=== PATIENT | female | born 1995 | race American Indian/Alaskan Native ===

== ENCOUNTER 2017-07-18 00:51 | Emergency (ER) | payer SELFPAY ==
[2017-07-18 00:57] VITALS: BP 110/69
[2017-07-18] MEDS ORDERED: MOTRIN PO ONE (05:06)
[2017-07-18] MEDS ORDERED: DECADRON IM ONE (05:06)
[2017-07-18] MEDS ORDERED: TYLENOL PO ONE (05:07)
[2017-07-18] MEDS ORDERED: BICILLIN L-A IM ONE (05:07)
--- NOTE | 2017-07-18 06:20 | Emergency Department Report ---
ED ENT HPI - General Chief complaint: Sore Throat Stated complaint: SORETHROAT Time Seen by Provider: 07/18/17 04:43 Source: patient Mode of arrival: Ambulatory Limitations: No Limitations - History of Present Illness Initial comments: 22-year-old female past medical history none presents with complaint of 3-4 days of intermittent body aches sore throat chills and exudates on tonsils. Patient is awake alert and oriented 3 no wheezing or stridor noted on exam. Patient speaking in full sentences. No trismus and no drooling noted on exam. Patient is fully lucid and able to speak in full sentences. Primarily complaining of sore throat. Some intermittent nausea. MD complaint: sore throat Onset/Timin -: days(s) Location: throat Severity: moderate Quality: aching Consistency: intermittent Improves with: none Worsens with: none Associated Symptoms: sore throat - Related Data Previous Rx's Medication Instructions Recorded Last Taken Type Dextromethorphan/Benzocaine 1 each PO Q4H PRN #1 box 07/18/17 Unknown Rx [Cepacol Sorethroat-Cough Carl] Ibuprofen [Motrin] 600 mg PO Q8H PRN #20 tablet 07/18/17 Unknown Rx Ondansetron [Zofran Odt] 4 mg PO Q8HR PRN #10 tab.rapdis 07/18/17 Unknown Rx Allergies Allergy/AdvReac Type Severity Reaction Status Date / Time No Known Allergies Allergy Unverified 07/18/17 01:23 ED Dental HPI - General Chief complaint: Sore Throat Stated complaint: SORETHROAT Time Seen by Provider: 07/18/17 04:43 Source: patient Mode of arrival: Ambulatory Limitations: No Limitations - Related Data Previous Rx's Medication Instructions Recorded Last Taken Type Dextromethorphan/Benzocaine 1 each PO Q4H PRN #1 box 07/18/17 Unknown Rx [Cepacol Sorethroat-Cough Carl] Ibuprofen [Motrin] 600 mg PO Q8H PRN #20 tablet 07/18/17 Unknown Rx Ondansetron [Zofran Odt] 4 mg PO Q8HR PRN #10 tab.rapdis 07/18/17 Unknown Rx Allergies Allergy/AdvReac Type Severity Reaction Status Date / Time No Known Allergies Allergy Unverified 07/18/17 01:23 ED Review of Systems ROS: Stated complaint: SORETHROAT Other details as noted in HPI Constitutional: malaise. denies: chills, fever Eyes: denies: eye pain, eye discharge, vision change ENT: throat pain. denies: ear pain Respiratory: denies: cough, shortness of breath, wheezing Cardiovascular: denies: chest pain, palpitations Endocrine: no symptoms reported Gastrointestinal: denies: abdominal pain, nausea, diarrhea Genitourinary: denies: urgency, dysuria, discharge Musculoskeletal: denies: back pain, joint swelling, arthralgia Skin: denies: rash, lesions Neurological: denies: headache, weakness, paresthesias Psychiatric: denies: anxiety, depression Hematological/Lymphatic: denies: easy bleeding, easy bruising ED Past Medical Hx - Past Medical History Previous Medical History?: No - Surgical History Past Surgical History?: Yes Additional Surgical History: facial sx 2016, hardware in jaw - Social History Smoking Status: Never Smoker Substance Use Type: None - Medications Home Medications: Home Medications Medication Instructions Recorded Confirmed Last Taken Type Dextromethorphan/Benzocaine 1 each PO Q4H PRN #1 box 07/18/17 Unknown Rx [Cepacol Sorethroat-Cough Carl] Ibuprofen [Motrin] 600 mg PO Q8H PRN #20 tablet 07/18/17 Unknown Rx Ondansetron [Zofran Odt] 4 mg PO Q8HR PRN #10 tab.rapdis 07/18/17 Unknown Rx ED Physical Exam - General Limitations: No Limitations General appearance: alert, in no apparent distress - Head Head exam: Present: atraumatic, normocephalic - Eye Eye exam: Present: normal appearance, PERRL, EOMI - ENT ENT exam: Present: mucous membranes moist - Expanded ENT Exam Expanded Mouth exam: Present: normal external inspection Throat exam: Positive: tonsillar exudate (bilateral tonsillar exudates on clinical exam 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 Absent: respiratory distress - Cardiovascular Cardiovascular Exam: Present: regular rate, normal rhythm. Absent: systolic murmur, diastolic murmur, rubs, gallop - GI/Abdominal GI/Abdominal exam: Present: soft, normal bowel sounds - Extremities Exam Extremities exam: Present: normal inspection - Back Exam Back exam: Present: normal inspection - Neurological Exam Neurological exam: Present: alert, oriented X3 - Psychiatric Psychiatric exam: Present: normal affect, normal mood - Skin Skin exam: Present: warm, dry, intact, normal color. Absent: rash ED Course Vital Signs 07/18/17 07/18/17 00:52 01:23 Temperature 99.2 F 99.2 F Pulse Rate 101 H 101 H Respiratory 18 18 Rate Blood Pressure 110/69 110/69 O2 Sat by Pulse 99 99 Oximetry ED Medical Decision Making - Medical Decision Making A/P: Tonsillitis 1-empiric treatment with Bicillin 2-Motrin when necessary, throat lozenges when necessary 3-I advised patient to follow up with primary care or to return to the ED for any inability to tolerate by mouth fluid or food persistent nausea and vomiting severe fevers and chills or fevers persistently above 100.4F despite antipyretic use, severe lethargy. Patient stated he understood my instructions. I advised patient to remain well-hydrated. 4- vitals stable for discharge patient tolerating by mouth before discharge without difficult Critical care attestation.: If time is entered above; I have spent that time in minutes in the direct care of this critically ill patient, excluding procedure time. ED Disposition Clinical Impression: Tonsillitis Disposition: TO HOME OR SELFCARE Is pt being admited?: No Does the pt Need Aspirin: No Condition: Stable Instructions: Tonsillitis (ED) Prescriptions: Dextromethorphan/Benzocaine [Cepacol Sorethroat-Cough Carl] 1 each PO Q4H PRN #1 box PRN Reason: Sore Throat Ibuprofen [Motrin] 600 mg PO Q8H PRN #20 tablet PRN Reason: Pain Ondansetron [Zofran Odt] 4 mg PO Q8HR PRN #10 tab.rapdis PRN Reason: Nausea Referrals: [facility] [Outside] - 3-5 Days [facility] [Outside] - 3-5 Days Forms: Work/School Release Form(ED) Time of Disposition: 06:46
[2017-07-18] MEDS ORDERED: ZOFRAN ODT PO ONE (06:33)
== END 2017-07-18 07:09 | disposition home or self-care (01) ==
LOC: ED 00:51
DX: J03.90 Acute tonsillitis, unspecified (principal)
CPT/HCPCS: 87116; 87430; 90471; 96372; 99283; J0561; J1100; Q0162

== ENCOUNTER 2021-09-06 13:43 | Emergency (ER) | payer SELFPAY ==
[2021-09-06 14:20] VITALS: BP 116/52
--- NOTE | 2021-09-06 21:19 | Emergency Department Report ---
ED General Adult HPI - General Chief complaint: Headache Stated complaint: SORE THROAT/FEVER/BODYACHES Source: patient Mode of arrival: Ambulatory Limitations: No Limitations - History of Present Illness Initial comments: Patient is a 26-year-old -[place] female with no past medical history presents to the ED with complaint of acute onset persistent nasal and sinus khadar estion, persistent dry cough, sore throat, diffuse body aches and pains and subjective fever and chills for the last 3 days. Patient states that she has not been able to eat anything because of persistent lack of appetite and generalized weakness. Patient states that she has not taken any medication and came to the ED for evaluation. Patient states that no one else at home is centimeter symptoms. Patient denies dizziness, syncope, chest pain or shortness of breath, nausea and vomiting, diarrhea, abdominal pain, dysuria, urinary frequency and urgency, change in vision or palpitations. MD Complaint: Nasal and sinus congestion, sore throat, body aches and pains, fever -: Sudden, days(s) (3) Location: head, mouth, chest Radiation: non-radiation Severity scale (0 -10): 4 Quality: aching Consistency: constant Improves with: none Worsens with: none Associated Symptoms: denies other symptoms, cough, fever/chills, headaches, loss of appetite, malaise. denies: confusion, chest pain, diaphoresis, nausea/vomiting, rash, seizure, shortness of breath, syncope, weakness Treatments Prior to Arrival: none - Related Data Previous Rx's Medication Instructions Recorded Last Taken Type Dextromethorphan/Benzocaine 1 each PO Q4H PRN #1 box 07/18/17 Unknown Rx [Cepacol Sorethroat-Cough Carl] Ibuprofen [Motrin] 600 mg PO Q8H PRN #20 tablet 07/18/17 Unknown Rx Ondansetron [Zofran Odt] 4 mg PO Q8HR PRN #10 tab.rapdis 07/18/17 Unknown Rx Azithromycin [Zithromax Z-CALIN] 250 mg PO DAILY #6 tab 09/06/21 Unknown Rx Cetirizine HCl [Zyrtec 10mg tab] 10 mg PO DAILY #30 tab 09/06/21 Unknown Rx Ibuprofen [Motrin] 600 mg PO Q8H PRN #30 tablet 09/06/21 Unknown Rx predniSONE [Deltasone] 40 mg PO QDAY #10 tab 09/06/21 Unknown Rx Allergies Allergy/AdvReac Type Severity Reaction Status Date / Time No Known Allergies Allergy Unverified 07/18/17 01:23 ED Review of Systems ROS: Stated complaint: SORE THROAT/FEVER/BODYACHES Other details as noted in HPI Constitutional: chills, fever, malaise Eyes: denies: eye pain, eye discharge, vision change ENT: throat pain, congestion. denies: ear pain Respiratory: cough. denies: shortness of breath, wheezing Cardiovascular: denies: chest pain, palpitations Endocrine: no symptoms reported Gastrointestinal: denies: abdominal pain, nausea, vomiting, diarrhea Genitourinary: denies: urgency, dysuria, discharge Musculoskeletal: arthralgia, myalgia. denies: back pain, joint swelling Skin: denies: rash, lesions Neurological: headache. denies: weakness, paresthesias Psychiatric: denies: anxiety, depression Hematological/Lymphatic: denies: easy bleeding, easy bruising ED Past Medical Hx - Surgical History Additional Surgical History: facial sx 2016, hardware in jaw - Social History Smoking Status: Never Smoker Substance Use Type: None - Medications Home Medications: Home Medications Medication Instructions Recorded Confirmed Last Taken Type Dextromethorphan/Benzocaine 1 each PO Q4H PRN #1 box 07/18/17 Unknown Rx [Cepacol Sorethroat-Cough Carl] Ibuprofen [Motrin] 600 mg PO Q8H PRN #20 tablet 07/18/17 Unknown Rx Ondansetron [Zofran Odt] 4 mg PO Q8HR PRN #10 tab.rapdis 07/18/17 Unknown Rx Azithromycin [Zithromax Z-CALIN] 250 mg PO DAILY #6 tab 09/06/21 Unknown Rx Cetirizine HCl [Zyrtec 10mg tab] 10 mg PO DAILY #30 tab 09/06/21 Unknown Rx Ibuprofen [Motrin] 600 mg PO Q8H PRN #30 tablet 09/06/21 Unknown Rx predniSONE [Deltasone] 40 mg PO QDAY #10 tab 09/06/21 Unknown Rx ED Physical Exam - General Limitations: No Limitations General appearance: alert, in no apparent distress - Head Head exam: Present: atraumatic, normocephalic, normal inspection - Eye Eye exam: Present: normal appearance, PERRL, EOMI Pupils: Present: normal accommodation - ENT ENT exam: Present: mucous membranes moist, TM's normal bilaterally, normal external ear exam, other (Grossly congested nasal passages; mild erythematous oropharynx) - Neck Neck exam: Present: normal inspection, full ROM. Absent: tenderness - Respiratory Respiratory exam: Present: normal lung sounds bilaterally. Absent: respiratory distress, wheezes, rales, rhonchi, chest wall tenderness, accessory muscle use, decreased breath sounds, prolonged expiratory - Cardiovascular Cardiovascular Exam: Present: regular rate, normal rhythm, normal heart sounds. Absent: systolic murmur, diastolic murmur, rubs, gallop - GI/Abdominal GI/Abdominal exam: Present: soft, normal bowel sounds. Absent: tenderness, guarding, rebound, hyperactive bowel sounds, hypoactive bowel sounds, organomegaly, bruit - Extremities Exam Extremities exam: Present: normal inspection, full ROM, normal capillary refill - Back Exam Back exam: Present: normal inspection, full ROM. Absent: tenderness, CVA tenderness (R), CVA tenderness (L), muscle spasm, paraspinal tenderness - Neurological Exam Neurological exam: Present: alert, oriented X3, CN II-XII intact, normal gait, reflexes normal - Psychiatric Psychiatric exam: Present: normal affect, normal mood - Skin Skin exam: Present: warm, dry, intact, normal color. Absent: rash ED Course Vital Signs 09/06/21 14:16 Temperature 98.5 F Pulse Rate 95 H Respiratory 18 Rate Blood Pressure 116/52 [Left] O2 Sat by Pulse 100 Oximetry ED Medical Decision Making - Medical Decision Making This is a 26-year-old -[place] female with no past medical history presents to the ED with complaint of acute onset persistent nasal and sinus congestion, persistent dry cough, sore throat, diffuse body aches and pains and subjective fever and chills for the last 3 days. Patient states that she has not been able to eat anything because of persistent lack of appetite and generalized weakness. Patient states that she has not taken any medication and came to the ED for evaluation. Patient states that no one else at home is centimeter symptoms. In the ED, patient is alert and oriented x3 and is not in any distress. Patient was treated for pain in the ED. Patient was discharged home on medications and advised to follow-up with his primary care physician in 7 to 10 days for reevaluation or return to the ED immediately if symptoms get worse. - Differential Diagnosis URI; pharyngitis; tonsillitis; sinusitis; rhinitis; bronchitis Critical care attestation.: If time is entered above; I have spent that time in minutes in the direct care of this critically ill patient, excluding procedure time. ED Disposition Clinical Impression: Acute upper respiratory infection Acute pharyngitis Qualifiers: Pharyngitis/tonsillitis etiology: other specified organisms Qualified Code(s): J02.8 - Acute pharyngitis due to other specified organisms Acute bronchitis Qualifiers: Bronchitis organism: other organism Qualified Code(s): J20.8 - Acute bronchitis due to other specified organisms Disposition: HOME / SELF CARE / HOMELESS Is pt being admited?: No Does the pt Need Aspirin: No Condition: Stable Instructions: Acute Bronchitis (ED), Upper Respiratory Infection, Adult, [id number], Cough, Adult, [id number], Pharyngitis, [id number] Additional Instructions: Take medication with food, drink plenty of fluids and follow-up with your primary care physician in 7 to 10 days for reevaluation. Return to the ED immediately if symptoms get worse. Prescriptions: predniSONE [Deltasone] 40 mg PO QDAY #10 tab Ibuprofen [Motrin] 600 mg PO Q8H PRN #30 tablet PRN Reason: Pain Azithromycin [Zithromax Z-CALIN] 250 mg PO DAILY #6 tab Cetirizine HCl [Zyrtec 10mg tab] 10 mg PO DAILY #30 tab Referrals: [facility] [Provider Group] - 3-5 Days Forms: Work/School Release Form(ED) Time of Disposition: 21:19 Print Language: WOLOF
[2021-09-06] MEDS ORDERED: predniSONE 20 MG TAB PO ONE (21:21)
[2021-09-06] MEDS ORDERED: ONDANSETRON 4 MG ODT TAB PO ONE (21:21)
[2021-09-06] MEDS ORDERED: IBUPROFEN 600 MG TAB PO ONE (21:21)
== END 2021-09-06 23:46 | disposition home or self-care (01) ==
LOC: ED 13:43
DX: J06.9 Acute upper respiratory infection, unspecified (principal); J02.9 Acute pharyngitis, unspecified; J20.9 Acute bronchitis, unspecified; Z79.899 Other long term (current) drug therapy
CPT/HCPCS: 99282; J3490; Q0162